=== PATIENT | female | born 1975 | race Caucasian/White ===

== ENCOUNTER 2017-01-22 14:00 | Emergency (ER) | payer BC, MEDICAID ==
[~2017-01-22] VITALS: Wt 91.5 kg
[2017-01-22] MEDS ORDERED: HYDROCODONE/APAP (5/325) TAB PO ONE (15:30)
[2017-01-22] MEDS ORDERED: IBUP-1542 PO (16:24)
[2017-01-22] MEDS ORDERED: HYDR-906 PO (16:25)
--- NOTE | 2017-01-22 16:50 | ERD ---
ER Documentation Chief Complaint Date/Time DATE: 01/22/17 TIME: 16:42 Chief Complaint r knee pain no recent trauma. hx of injury 3 yrs ago. mild swelling HPI Patient is a 41-year-old female with past medical history of the right knee meniscus tear s/p meniscus repair who presents to the emergency department with right knee pain. Patient states her meniscus tear and repair occurred 3 years ago. At that time she was told that she had a significant injury and would require a knee replacement. She states over the last 3-4 days her pain has become severe. Patient states that the pain is primarily in the lateral aspect of her leg. Patient has some numbness and tingling of her left leg. Patient denies any recent falls or trauma. Patient states that she is having pain with ambulating. Patient states she last took ibuprofen 4 tabs this morning. Patient recently had x-ray imaging done yesterday. She has an appointment pending with an [facility] in mid February. She denies any fever, chills, nausea, vomiting, chest pain, shortness breath or loss consciousness. Patient states her meniscus tear occurred after a trip and fall injury. ROS All systems reviewed and are negative except as per history of present illness. Medications Home Meds Active Scripts Hydrocodone/Acetaminophen ([place] 5-325 Tablet) 1 Each Tablet, 1 TAB PO Q6H Y for PAIN, #10 TAB Prov:PRINCE CREWS PA-C 01/22/17 Ibuprofen* (Ibuprofen*) 600 Mg Tablet, 600 MG PO Q6, #30 TAB Prov:PRINCE CREWS PA-C 01/22/17 Reported Medications [none] No Conflict Check 06/23/10 Allergies Allergies: Coded Allergies: Penicillin G (Verified Allergy, Mild, RASH, 06/23/10) PMhx/Soc History of Surgery: Yes (KNEE, HAND) Anesthesia Reaction: No Hx Neurological Disorder: No Hx Respiratory Disorders: No Hx Cardiac Disorders: No Hx Psychiatric Problems: No Hx Miscellaneous Medical Probl: No Hx Alcohol Use: Yes (OCASSIONAL) Hx Substance Use: No Hx Tobacco Use: No Physical Exam Vitals Vital Signs Date Time Temp Pulse Resp B/P Pulse Ox O2 Delivery O2 Flow Rate FiO2 01/22/17 14:07 98.8 72 21 150/81 98 Physical Exam GENERAL: Well-developed, well-nourished female. Appears in no acute distress. HEAD: Normocephalic, atraumatic. EYES: Pupils are equally reactive bilaterally. EOMs grossly intact. No conjunctival erythema. ENT: Moist mucous membranes. No uvula deviation. No kissing tonsils. NECK: Supple. No meningismus. Normal range of motion of the neck. LUNG: Clear to auscultation bilaterally. No rhonchi, wheezing, rales or coarse breath sounds. HEART: Regular rate and rhythm. No murmurs, rubs or gallops. EXTREMITIES: Equal pulses bilaterally. No peripheral clubbing, cyanosis or edema. No unilateral leg swelling. NEUROLOGIC: Alert and oriented. Moving all four extremities without any difficulty. Normal speech. Steady gait. SKIN: Normal color. Warm and dry. No rashes or lesions. RIGHT KNEE: No obvious deformity, erythema, ecchymosis or swelling. Skin intact. Decreased range of motion secondary to pain. Range of motion of the ankle. Tender to palpation of the lateral aspect of her knee. Nontender to palpation of the tib-fib, thigh. Sensation intact to light touch. Neurovascularly intact. (Able to plantarflex, dorsiflex, khalida foot, invert foot , raise big toe.) 2+ DP and DT pulses. Results 24 hrs Current Medications Medications (Trade) Dose Ordered Sig/Peggy Route PRN Reason Start Time Stop Time Status Last Admin Dose Admin Acetaminophen/ Hydrocodone Bitart ([place] (5/325)) 1 tab ONCE ONCE PO 01/22/17 15:30 01/22/17 15:31 DC 01/22/17 15:14 Procedures/MDM ED COURSE: The patient was stable throughout ED course. I kept the patient and/or family informed of laboratory and diagnostic imaging results throughout the ED course. MEDICATIONS GIVEN: [place] Patient tolerated medication well with no adverse reactions. Patient reported improvement in pain. MEDICAL DECISION MAKING: This is a 41-year-old female who presents with right knee pain. Patient states she had an twist and fall injury 3 years ago. Patient underwent surgical repair for meniscus tear and was advised that she may need a knee replacement in the future.. Since that time she has been having chronic pain of her right knee. Vital signs were reviewed. Patient was afebrile. Patient states that she had x-ray imaging of her ankle and knee performed yesterday. Results are pending. Given that patient denies any recent falls or trauma, I do not believe that x-ray imaging is indicated at this time. Given these findings, patient's presentation is most consistent with chronic knee pain. It is possible that the patient may require a knee replacement in the near future given her history. I have a much lower clinical concern for femur fracture, patella fracture, tibial plateau fracture, septic joint, gout, popliteal cyst, prepatellar bursitis, osteomyelitis, DVT or compartment syndrome. At this time, unable to rule out any meniscus and knee ligament injuries. Patient was offered a knee immobilizer and crutches here in the emergency department however she declined given that she stated she had a knee immobilizer and crutches at home. Patient was advised to remain nonweightbearing to the affected extremity. PRESCRIPTIONS: Ibuprofen, [place] DISCHARGE: At this time, patient is stable for discharge and outpatient management. RICE therapy was advised. I have instructed the patient to follow-up with his/her primary care physician in 1-2 days. Patient will need to follow-up with an orthopedic surgeon for further management of her symptoms including possible knee replacement. Patient will need to have an MRI obtained on an outpatient basis. I have instructed the patient to promptly return to the ER for any new or worsening symptoms including increased pain, swelling, redness, warmth or fever. The patient and/or family expressed understanding of and agreement with this plan. All questions were answered. Home care instructions were provided. Departure Diagnosis: Primary Impression: Knee pain Laterality: unspecified laterality Chronicity: chronic Qualified Code: M25.569 - Chronic knee pain, unspecified laterality Condition: Stable Patient Instructions: Knee Pain, Uncertain Cause Referrals: [facility] YOU HAVE RECEIVED A MEDICAL SCREENING EXAM AND THE RESULTS INDICATE THAT YOU DO NOT HAVE A CONDITION THAT REQUIRES URGENT TREATMENT IN THE EMERGENCY DEPARTMENT. FURTHER EVALUATION AND TREATMENT OF YOUR CONDITION CAN WAIT UNTIL YOU ARE SEEN IN YOUR DOCTORS OFFICE WITHIN THE NEXT 1-2 DAYS. IT IS YOUR RESPONSIBILITY TO MAKE AN APPOINTMENT FOR FOLOW-UP CARE. IF YOU HAVE A PRIMARY DOCTOR --you should call your primary doctor and schedule an appointment IF YOU DO NOT HAVE A PRIMARY DOCTOR YOU CAN CALL OUR PHYSICIAN REFERRAL HOTLINE AT IF YOU CAN NOT AFFORD TO SEE A PHYSICIAN YOU CAN CHOSE FROM THE FOLLOWING [facility] [address] [facility]. [facility] [address] [facility] [address] [facility] [address] [facility] [address] [facility]. [facility] [address] [facility]. [facility] YOU HAVE RECEIVED A MEDICAL SCREENING EXAM AND THE RESULTS INDICATE THAT YOU DO NOT HAVE A CONDITION THAT REQUIRES URGENT TREATMENT IN THE EMERGENCY DEPARTMENT. FURTHER EVALUATION AND TREATMENT OF YOUR CONDITION CAN WAIT UNTIL YOU ARE SEEN IN YOUR DOCTORS OFFICE WITHIN THE NEXT 1-2 DAYS. IT IS YOUR RESPONSIBILITY TO MAKE AN APPOINTMENT FOR FOLOW-UP CARE. IF YOU HAVE A PRIMARY DOCTOR --you should call your primary doctor and schedule and appointment IF YOU DO NOT HAVE A PRIMARY DOCTOR YOU CAN CALL OUR PHYSICIAN REFERRAL HOTLINE AT . IF YOU CAN NOT AFFORD TO SEE A PHYSICIAN YOU CAN CHOSE FROM THE FOLLOWING [facility] INSTITUTIONS: [facility] [address] [place] [address] [facility] [address] [place] [address] [facility] [address] [place] [address] [facility] Hours: Mon-Fri 9:00 AM - 5:00 PM Additional Instructions: Call your primary care doctor/orthopedic surgeon TOMORROW for an appointment during the next 1-2 days.See the doctor sooner or return here if your condition worsens before your appointment time. See Referral list. Patient was advised to remain nonweightbearing to the affected extremity. Patient was offered crutches and a knee immobilizer in the ED however she declined it stating she had one at home. She advised to use her knee immobilizer and crutches upon arriving home. Given that patient x-ray imaging performed yesterday, repeat imaging was not obtained. Patient will need an MRI on an outpatient basis for further management of her chronic injuries. PRINCE CREWS PA-C Jan 22, 2017 16:49 PRINCE CREWS PA-C Jan 22, 2017 16:49
== END 2017-01-22 16:55 | disposition home or self-care (01) ==
LOC: FTE 14:00
DX: M25.561 Pain in right knee (principal)
CPT/HCPCS: 99283

== ENCOUNTER 2019-02-20 01:42 | Emergency (ER) | payer BC, OTHER ==
[~2019-02-20] VITALS: Ht 177.8 cm; Wt 96.6 kg
[~2019-02-20 01:42] MED LIST: HYDR-4011 PO; IBUP-1542 PO
[2019-02-20 01:43] VITALS: Ht 177.8 cm; Wt 96.6 kg
[2019-02-20] MEDS ORDERED: DIPHENHYDRAMINE 50 MG INJ IV STA (01:51)
[2019-02-20] MEDS ORDERED: ALBUTEROL 0.083% (NEB) 2.5 MG/3 ML AMP INH STA (01:51)
[2019-02-20] MEDS ORDERED: METHYLPREDNISOLONE 125 MG INJ IV STA (01:51)
[2019-02-20] MEDS ORDERED: EPINEPHrine 1 MG INJ IM STA (01:51)
[2019-02-20] MEDS ORDERED: IPRATROPIUM (NEB) 0.5 MG/2.5 ML AMP INH STA (01:51)
[2019-02-20] MEDS ORDERED: DIPHENHYDRAMINE 50 MG INJ ONE (01:54)
[2019-02-20] MEDS ORDERED: METHYLPREDNISOLONE 125 MG INJ ONE (01:54)
[2019-02-20] MEDS ORDERED: EPINEPHrine 1 MG INJ ONE (01:54)
[2019-02-20] MEDS ORDERED: FAMOTIDINE 20 MG INJ IV ONE (02:30)
[2019-02-20] MEDS ORDERED: LORAZEPAM 2 MG INJ IV ONE (03:00)
[2019-02-20] MEDS ORDERED: RANI150T35 PO (05:51)
[2019-02-20] MEDS ORDERED: PRED20TA PO (05:51)
[2019-02-20] MEDS ORDERED: BEN50 PO (05:51)
[2019-02-20 06:00] VITALS: BP 101/63; PULSE 94; RESP 18
--- NOTE | 2019-03-19 19:09 | ERD ---
ER Documentation Chief Complaint Chief Complaint HAVING TROUBLE BREATHING, SWALLOWING, RASH, ANXIETY HPI This a 43-year-old coming with complaints tolerating swelling and a rash after having peanuts. Patient is able to tolerate secretions that she is feeling progressively worse. Has history of peanut allergy. Did not realize that her pain is in the food. ROS All systems reviewed and are negative except as per history of present illness. Medications Home Meds Active Scripts Ranitidine Hcl* (Zantac*) 150 Mg Tablet, 150 MG PO BID PRN for EPIGASTRIC PAIN, #10 TAB Prov:LALITO GIBBS. 02/20/19 Prednisone* (Prednisone*) 20 Mg Tab, 60 MG PO DAILY for 4 Days, TAB Prov:LALITO GIBBS 02/20/19 Diphenhydramine Hcl* (Benadryl*) 50 Mg Cap, 50 MG PO Q6 PRN for ALLERGIC REACTION, #30 CAP Prov:LALITO GIBBS 02/20/19 Hydrocodone/Acetaminophen ([place] 5-325 Tablet) 1 Each Tablet, 1 TAB PO Q6H PRN for PAIN, #10 TAB Prov:PRINCE CREWS PA-C 01/22/17 Ibuprofen* (Ibuprofen*) 600 Mg Tablet, 600 MG PO Q6, #30 TAB Prov:PRINCE CREWS PA-C 01/22/17 Reported Medications [none] No Conflict Check 06/23/10 Allergies Allergies: Coded Allergies: penicillin G (Verified Allergy, Mild, RASH, 06/23/10) PMhx/Soc Medical and Surgical Hx: pt denies Medical Hx History of Surgery: Yes (KNEE, HAND) Anesthesia Reaction: No Hx Neurological Disorder: No Hx Respiratory Disorders: No Hx Cardiac Disorders: No Hx Psychiatric Problems: No Hx Miscellaneous Medical Probl: No Hx Alcohol Use: Yes (OCASSIONAL) Hx Substance Use: No Hx Tobacco Use: No Smoking Status: Never smoker Physical Exam Physical Exam Const: No acute distress Head: Atraumatic Eyes: Normal Conjunctiva ENT: Normal External Ears, Nose and Mouth. Neck: Full range of motion. No meningismus. Resp: Clear to auscultation bilaterally Cardio: Regular rate and rhythm, no murmurs Abd: Soft, non tender, non distended. Normal bowel sounds Skin: No petechiae or rashes Back: No midline or flank tenderness Ext: No cyanosis, or edema Neur: Awake and alert Psych: Normal Mood and Affect Results 24 hrs Laboratory Tests Test 02/20/19 02:13 02/20/19 02:14 Sodium Level 143 mmol/L Potassium Level 4.0 mmol/L Chloride Level 109 mmol/L Carbon Dioxide Level 23 mmol/L Anion Gap 11 Blood Urea Nitrogen 15 mg/dl Creatinine 0.69 mg/dl Est Glomerular Filtrat Rate mL/min > 60 mL/min Glucose Level 97 mg/dl Calcium Level 9.5 mg/dl Total Bilirubin 0.4 mg/dl Direct Bilirubin 0.00 mg/dl Indirect Bilirubin 0.4 mg/dl Aspartate Amino Transf (AST/SGOT) 18 IU/L Alanine Aminotransferase (ALT/SGPT) 18 IU/L Alkaline Phosphatase 96 IU/L Total Protein 7.7 g/dl Albumin 4.3 g/dl Globulin 3.40 g/dl Albumin/Globulin Ratio 1.26 White Blood Count 10.2 10^3/ul Red Blood Count 4.88 10^6/ul Hemoglobin 13.2 g/dl Hematocrit 40.5 % Mean Corpuscular Volume 83.0 fl Mean Corpuscular Hemoglobin 27.0 pg Mean Corpuscular Hemoglobin Concent 32.6 g/dl Red Cell Distribution Width 13.3 % Platelet Count 288 10^3/UL Mean Platelet Volume 10.7 fl Immature Granulocytes % 0.300 % Neutrophils % 43.8 % Lymphocytes % 44.7 % Monocytes % 8.2 % Eosinophils % 2.3 % Basophils % 0.7 % Nucleated Red Blood Cells % 0.0 /100WBC Immature Granulocytes # 0.030 10^3/ul Neutrophils # 4.5 10^3/ul Lymphocytes # 4.6 10^3/ul Monocytes # 0.8 10^3/ul Eosinophils # 0.2 10^3/ul Basophils # 0.1 10^3/ul Nucleated Red Blood Cells # 0.0 10^3/ul Current Medications Medications Dose Sig/Peggy Start Time Status Last (Trade) Ordered Route PRN Stop Time Admin Dose Reason Admin 50 mg ONCE STAT 02/20/19 DC 02/20/19 Diphenhydrami IV 01:51 01:52 ne HCl 02/20/19 01:54 (Benadryl) Epinephrine 0.3 mg ONCE STAT 02/20/19 DC 02/20/19 IM 01:51 02:32 (EPINEPHrine) 02/20/19 01:54 125 mg ONCE STAT 02/20/19 DC 02/20/19 Methylprednis IV 01:51 01:54 olone Sodium 02/20/19 01:54 Succinate (Solu-Medrol) Albuterol 2.5 mg ONCE STAT 02/20/19 DC 02/20/19 (Proventil INH 01:51 02:08 0.083% (Neb)) 02/20/19 01:54 Ipratropium 0.5 mg ONCE STAT 02/20/19 DC 02/20/19 [place] INH 01:51 02:08 (Atrovent 02/20/19 01:54 0.02% (Neb)) Famotidine 20 mg ONCE ONCE 02/20/19 DC 02/20/19 (Pepcid Iv) IV 02:30 02:47 02/20/19 02:31 Lorazepam 0.5 mg ONCE ONCE 02/20/19 DC 02/20/19 (Ativan) IV 03:00 02:52 02/20/19 03:01 50 mg STK-MED 02/20/19 DC Diphenhydrami ONCE .ROUTE 01:54 ne HCl 02/20/19 16:32 (Benadryl) Epinephrine 1 mg STK-MED 02/20/19 DC ONCE .ROUTE 01:54 (EPINEPHrine) 02/20/19 16:32 125 mg STK-MED 02/20/19 DC Methylprednis ONCE .ROUTE 01:54 olone Sodium 02/20/19 16:33 Succinate (Solu-Medrol) Procedures/MDM Is a very pleasant 43-year-old female has evidence of allergic reaction patient achieved epinephrine albuterol Benadryl and steroids. She feels much better. She is been observed for hours which be discharged with short course of steroids, Benadryl, Zantac. Follow with PCP and allergy testing. Return for worsening symptoms. Departure Diagnosis: Primary Impression: Allergic reaction Encounter type: initial encounter Qualified Codes: T78.40XA - Allergy, unspecified, initial encounter Condition: Stable Patient Instructions: Allergic Reaction, Other (General) LALITO GIBBS March 19, 2019 19:09
== END 2019-02-20 06:10 | disposition home or self-care (01) ==
LOC: E/R 01:42
DX: T78.1XXA Other adverse food reactions, not elsewhere classified, initial encounter (principal); R21 Rash and other nonspecific skin eruption; R05 Cough; Z91.010 Allergy to peanuts
CPT/HCPCS: 71045; 80053; 85025; 94664; 96372; 96374; 96375; 99284; J0171; J1200; J2060; J2930